=== PATIENT | female | born 1980 | race Caucasian/White ===

== ENCOUNTER 2022-01-03 08:21 | Day surgery (SDC) | payer MEDICAID ==
[~2022-01-03] VITALS: Ht 170.2 cm; Wt 121.7 kg
[2022-01-03] MEDS ORDERED: LIDOcaine 1%/PF 5ML 10 MG/ML VIAL SQ ONE (08:35)
[2022-01-03] MEDS ORDERED: SPIR50TA5 PO (08:48)
[2022-01-03] MEDS ORDERED: ALBU17AE26 (08:48)
[2022-01-03] MEDS ORDERED: AMOX500T2 PO (08:48)
[2022-01-03 09:00] VITALS: BP 136/78
[2022-01-03 10:30] VITALS: BP 131/78
[2022-01-03] MEDS: albumin 25% 100mL bottle x 1 IV PRN ×2 (10:37→10:39)
[2022-01-03 10:45] VITALS: BP 127/65
[2022-01-03 11:00] VITALS: BP 137/79
[2022-01-03 11:15] VITALS: BP 132/66
== END 2022-01-03 12:25 | disposition home or self-care (01) ==
LOC: SSTAY O 08:21
PROVIDERS: ATTEND Radiology Diagnostic Radiology
DX: R18.8 Other ascites (principal); R14.0 Abdominal distension (gaseous); K74.60 Unspecified cirrhosis of liver; Z86.19 Personal history of other infectious and parasitic diseases; F15.90 Other stimulant use, unspecified, uncomplicated; Z98.890 Other specified postprocedural states; Z88.1 Allergy status to other antibiotic agents; Z79.899 Other long term (current) drug therapy
CPT/HCPCS: 49083; J3490; P9047; Z7610; A6258